=== PATIENT | female | born 1970 | race African-American/Black ===

== ENCOUNTER 2019-02-15 15:41 | Outpatient (CLI) ==
[2019-02-15] MEDS ORDERED: ZINC50CA PO (16:01)
[2019-02-15] MEDS ORDERED: BIOT1TAB12 PO (16:01)
[2019-02-15] MEDS ORDERED: MAGN400C3 PO (16:01)
[2019-02-15] MEDS ORDERED: CHOL200074 PO (16:01)
[2019-02-15] MEDS ORDERED: VITA400C43 PO (16:01)
[2019-02-15] MEDS ORDERED: CALC-534 PO (16:02)
[2019-02-15] MEDS ORDERED: ACID1TAB PO (16:02)
[2019-02-15] MEDS ORDERED: DIPH25CA61 PO (16:12)
== END 2019-02-15 23:59 | disposition home or self-care (01) ==
LOC: STAR 15:41
PROVIDERS: ATTEND Obstetrics & Gynecology Female Pelvic Medicine and Reconstructive Surgery
DX: Z02.9 Encounter for administrative examinations, unspecified (principal)

== ENCOUNTER 2019-02-22 07:21 | Day surgery (SDC) | payer BC ==
[~2019-02-22] VITALS: Ht 170.2 cm; Wt 106.1 kg
[~2019-02-22 07:21] MED LIST: ACID1TAB PO; BIOT1TAB12 PO; BUPIVACAINE/PF 0.25% ONE; CALC-534 PO; CHOL200074 PO; DIPH25CA61 PO; EPINEPHRINE 1 MG/ML, 1ML ONE; GENTAMICIN 80 MG/2 ML ONE; MAGN400C3 PO; VANCOMYCIN 500 MG ONE; VITA400C43 PO; ZINC50CA PO
[2019-02-22] MEDS ORDERED: GABAPENTIN 300 MG CAPSULE PO STA (07:48)
[2019-02-22] MEDS ORDERED: SCOPOLAMINE PATCH, 1.5MG PATCH.TD72 TD STA (07:48)
[2019-02-22] MEDS ORDERED: ONDANSETRON ODT 8 MG PO STA (07:48)
[2019-02-22] MEDS ORDERED: ACETAMINOPHEN 500 MG TABLET PO STA (07:48)
[2019-02-22] MEDS ORDERED: LACTATED RINGERS 1,000 ML IV SCH (07:54)
[2019-02-22] MEDS ORDERED: ROCURONIUM 10MG/ML,5ML ONE (08:02)
[2019-02-22] MEDS ORDERED: MIDAZOLAM 1 MG/ML, 2ML ONE (08:02)
[2019-02-22] MEDS ORDERED: PROPOFOL 10 MG/ML, 20ML ONE (08:02)
[2019-02-22] MEDS ORDERED: CEFAZOLIN 1,000 MG ONE ×2 (08:02)
[2019-02-22] MEDS ORDERED: DEXAMETHASONE 4 MG/ML, 1ML ONE ×2 (08:03)
[2019-02-22] MEDS ORDERED: LIDOCAINE-MPF 2% ,5ML ONE ×2 (08:03)
[2019-02-22] MEDS ORDERED: METOCLOPRAMIDE 5 MG/ML, 2ML ONE (08:03)
[2019-02-22 08:04] LABS: HCG UR SG 1.022 (1.003-1.030)
[2019-02-22] MEDS ORDERED: LABETALOL 5MG/ML, 20ML IV PRN (08:30)
[2019-02-22] MEDS ORDERED: MEPERIDINE/PF 25MG/ML,1ML IVPush PRN (08:30)
[2019-02-22] MEDS ORDERED: OXYcodone 5 MG/5 ML ORAL.SOL UDC PO PRN (08:30)
[2019-02-22] MEDS ORDERED: DIPHENHYDRAMINE 50 MG/ML, 1ML IVPush PRN (08:30)
[2019-02-22] MEDS ORDERED: HYDROmorphone 2 MG/ML, 1ML IVPush PRN (08:30)
[2019-02-22] MEDS ORDERED: LORazepam 2 MG/ML, 1ML IVPush PRN (08:30)
[2019-02-22] MEDS ORDERED: hydrALAzine 20 MG/ML, 1ML IV PRN (08:30)
[2019-02-22] MEDS ORDERED: ONDANSETRON 2MG/ML, 2ML IV PRN (08:30)
[2019-02-22] MEDS ORDERED: MAGNESIUM SULFATE 1 GM/2 ML ONE (09:14)
[2019-02-22] MEDS ORDERED: GLYCOPYRROLATE 0.2MG/1ML, 5ML ONE (09:36)
[2019-02-22] MEDS ORDERED: NEOSTIGMINE 1 MG/ML, 10ML ONE (09:36)
[2019-02-22] MEDS ORDERED: PHENYLEPHRINE 10 MG/ML ONE (09:36)
[2019-02-22] MEDS ORDERED: KETOROLAC 30 MG/1 ML ONE (09:56)
[2019-02-22] MEDS ORDERED: FENTANYL PF 100 MCG/2ML ONE (12:20)
[2019-02-22] MEDS: FENTANYL PF 100 MCG/2ML IV PRN ×3 (12:22→13:01)
[2019-02-22] MEDS ORDERED: OXYcodone 5 MG/5 ML ORAL.SOL UDC ONE (12:59)
== END 2019-02-22 15:15 | disposition home or self-care (01) ==
LOC: OUT 07:21
PROVIDERS: ATTEND Obstetrics & Gynecology Female Pelvic Medicine and Reconstructive Surgery
DX: D25.9 Leiomyoma of uterus, unspecified (principal); N95.0 Postmenopausal bleeding; N81.2 Incomplete uterovaginal prolapse; N81.89 Other female genital prolapse; N39.46 Mixed incontinence; N73.6 Female pelvic peritoneal adhesions (postinfective); N13.5 Crossing vessel and stricture of ureter without hydronephrosis; N72 Inflammatory disease of cervix uteri; N88.8 Other specified noninflammatory disorders of cervix uteri; N80.0 Endometriosis of uterus; N83.02 Follicular cyst of left ovary; N83.01 Follicular cyst of right ovary; N94.10 Unspecified dyspareunia; R10.2 Pelvic and perineal pain; Z72.89 Other problems related to lifestyle; Z98.51 Tubal ligation status; Z98.890 Other specified postprocedural states
CPT/HCPCS: 53899; 57265; 57282; 57288; 58552; 81025; 88307; C1771; J0171; J0690; J1100; J1580; J1885; J2250; J2370; J2704; J2710; J2765; J3010; J3370; J3475; J3490; J7120; Q0162